=== PATIENT | male | born 1995 | race Caucasian/White ===

== ENCOUNTER 2019-10-22 10:20 | Emergency (ER) | payer OTHER, SELFPAY ==
[2019-10-22 10:36] VITALS: BP 124/91; PULSE 123; RESP 20; TEMP 36.5; O2SAT 100
--- NOTE | 2019-10-22 11:12 | ED.ANXIETY ---
HPI - Anxiety General Chief Complaint: Anxiety Stated Complaint: ANXIETY Time Seen by Provider: 10/22/19 11:05 Source: patient and RN notes reviewed Mode of arrival: ambulatory Limitations: no limitations History of Present Illness HPI narrative: Pt is a 24 y/o male who is a nonsmoker/nondrinker that presents to the with c/o panic attacks since 8PM last night. Pt states that he has a H/O bipolar disorder and sees his psychiatrist Dr. Kirstie Zaidi every 2 months for the last 2 years. Pt states that he was in [facility] a month and a half ago for the same complaint and he was given some instructions to deal with his panic attacks and was told to follow up with his psychiatrist. Pt takes hydroxyzine PRN, latuda, pristiq, and lamotrigine for his psychiatric issues. He states that he takes his medications as Rx but he has not gotten any relief from them. Pt has not called his psychiatrist for a follow up. Pt denies using any drugs. He states that he has been more stressed at work lately. 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 Pt denies a sore throat, fever, cough, suicidal ideation, or homicidal ideation. He notes that he was not able to sleep all night d/t his anxiety. Pt states he used to take klonopin but does not remember if it worked; discussed will provide refill-but to be used only at night and not during the workday MD complaint: anxiety Onset (ago): hour(s) (15) Severity: similar to previous episodes Quality: constant Place: home History of similar episodes: Yes Provoking factors: work/job stress Relieving factors: nothing Associated symptoms: denies other symptoms Related Data Home Medications Medication Instructions Recorded Confirmed desvenlafaxine succinate 100 mg 100 mg PO DAILY 08/07/19 10/22/19 tablet,extended release 24 hr lamotrigine 25 mg tablet 25 mg PO DAILY tablet 08/07/19 10/22/19 lurasidone 60 mg tablet 60 mg PO BID tablet 08/07/19 10/22/19 hydroxyzine HCl 50 mg PO PRN 10/22/19 10/22/19 Allergies Allergy/AdvReac Type Severity Reaction Status Date / Time No Known Allergies Allergy Verified 10/22/19 10:34 Review of Systems Review of Systems: Narrative: General/Constitutional: No weight loss,fever Eyes: N0: Redness,discharge Ears/Nose/Throat: No: Epistaxis,ear discharge, sore throat Respiratory: Denies: Hemoptysis, cough Gastrointestinal: No Vomiting, Bleeding-rectal Skin: No Lumps, eruption Neurologic: No Focal Weakness,Sz Hematologic: Denies: Petechiae/Purpura Psychiatric: No: Suicidal ideation, homicidal ideation. Reports: panic attacks and anxiety All Other Systems: Reviewed and Negative PMFSH Past Medical History Medical History Anxiety Bipolar 1 disorder Surgical History Surgical History History of ear surgery Social History Social History Smoking status: Never smoker Tobacco type: e-cigarettes Alcohol intake: never Gender identity (if verbalized by the patient): Male Comments At time of signature, agree with nursing past medical, surgical, social and family history. There is no relevant family history pertinent to the presenting complaint Exam Narrative: Exam Narrative: General Appearance: Well appearing, Well nourished EYE: PERRLA, Conjunctiva clear Ears: Auditory canal normal, TM normal Nose: No Rhinorrhea, No Mucousal erythema Mouth/Throat: MM moist, Uvula midline Neck: Supple, No adenopathy Respiratory: No respiratory distress, Breath sounds equal, Clear to auscultation Cardiovascular: RRR, No JVD Musculoskeletal: Non tender, Normal strength Skin: Warm, Dry Neurological: A&O x3, CN II-XII intact Psychiatric: Normal mood, Normal affect Course Consultations Consultation #1: Discussed steven
--- NOTE | 2019-10-22 11:27 | PC.NURSE ---
After exam and discussion with Dr Alonzo-- called his DR and they said would see him Oct 29
== END 2019-10-22 11:39 | disposition home or self-care (01) ==
PROVIDERS: Emergency Provider Emergency Medicine
DX: G47.00 Insomnia, unspecified (principal); F31.9 Bipolar disorder, unspecified
CPT/HCPCS: 99213; G0463

== ENCOUNTER 2019-11-12 11:45 | Emergency (ER) | payer OTHER, SELFPAY ==
[2019-11-12 11:55] VITALS: BP 137/79; PULSE 106; RESP 20; TEMP 37; O2SAT 99
--- NOTE | 2019-11-12 12:33 | ED.LOWEXIN ---
HPI - Extremity Injury (Lower) General Chief Complaint: Extremity Injury, Lower Stated Complaint: BILAT KNEE PAIN Time Seen by Provider: 11/12/19 12:11 Source: patient Mode of arrival: ambulatory Limitations: no limitations History of Present Illness HPI Narrative: 24-year-old male presents for evaluation of bilateral knee pain that is been present for 1.5 weeks. 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 Pain initially developed while he was walking up the stairs. He reports pain is worse while walking up stairs, extending legs, running. Right side is slightly worse than left. He used ice 1 time for 10 minutes. He has not taken any medications or use compression. He denies any prior knee injuries, conditions, surgeries. No swelling, bruising, numbness, tingling, redness, break to skin integrity. Related Data Home Medications Medication Instructions Recorded Confirmed desvenlafaxine succinate 100 mg 100 mg PO DAILY 08/07/19 11/12/19 tablet,extended release 24 hr lamotrigine 25 mg tablet 25 mg PO DAILY tablet 08/07/19 11/12/19 hydroxyzine HCl 50 mg PO PRN 10/22/19 11/12/19 Allergies Allergy/AdvReac Type Severity Reaction Status Date / Time No Known Allergies Allergy Verified 11/12/19 11:59 Review of Systems Review of Systems: Narrative: CONSTITUTIONAL: Denies fever, chills, weight loss, or sweats. EYES: Denies visual changes, redness, or discharge. CARDIOVASCULAR: Denies chest pain, palpitations, or edema. RESPIRATORY: Denies cough or dyspnea SKIN: Denies rash or itching. MUSCULOSKELETAL: Denies back pain, myalgia, swelling. Reporting anterior bilateral knee pain NEUROLOGIC: Denies headache, numbness, or weakness. PSYCHIATRIC: Denies anxiety or depression. All systems reviewed & are unremarkable except as noted in HPI and below PMFSH Past Medical History Medical History Anxiety Bipolar 1 disorder Surgical History Surgical History History of ear surgery Family History Family History Mother Depression Father Depression Other Family history of allergic disorder Family history of kidney stones Family history of mental disorder Family history of thyroid disease Social History Social History Smoking status: Never smoker Tobacco type: e-cigarettes Alcohol intake: never Gender identity (if verbalized by the patient): Male Comments At the time of my signature, I agree with nursing past medical, surgical, social and family history. There is no relevant family history pertinent to the presenting complaint. Exam Narrative: Exam Narrative: GENERAL: No distress, well appearing, well nourished, alert and calm HEAD: Normocephalic, atraumatic. EYES: Pupils equal, round. Extraocular movements intact. Conjunctivae without redness or drainage. RESPIRATORY: Airway patent. Chest clear to auscultation bilaterally. Breath sounds equal bilaterally. No retractions. CARDIOVASCULAR: Regular rate and rhythm. No murmurs, rubs, gallops, or clicks. Capillary refill <2 seconds. MUSCULOSKELETAL: Range of motion grossly normal in all four extremities. Strength grossly normal in all four extremities. No edema. No swelling, bruising, break to skin integrity, popping, clicking, or grinding boted to bilateral knees. FROM of bilateral knees with no pain on exam. No pain to palpation on exam. SKIN: Color normal. Warm and dry. No rashes. NEURO: Alert. Motor intact in all extremities. Muscle tone normal. PSYCHIATRIC: Responds appropriately to providers. Course Vital Signs Vital signs: Vital Signs Temperature 98.6 F 11/12/19 11:55 Pulse Rate 106 H 11/12/19 11:55 Respiratory Rate 11/12/19 11:55 Blood Pressure 137/79 11/12/19 11:55 Pulse Ox
== END 2019-11-12 12:41 | disposition home or self-care (01) ==
PROVIDERS: Emergency Provider Nurse Practitioner
DX: M25.562 Pain in left knee (principal); M25.561 Pain in right knee; F17.200 Nicotine dependence, unspecified, uncomplicated; F31.9 Bipolar disorder, unspecified
CPT/HCPCS: 99213; G0463

== ENCOUNTER → 2020-10-18 14:56 | Outpatient (CLI) | payer OTHER, MEDICAID, SELFPAY ==
--- NOTE | ~2020-10-18 | US_ITS ---
US breast LT limited INDICATION: Palpable left breast abnormality TECHNIQUE: Dedicated left breast ultrasound COMPARISON: No prior studies for comparison. FINDINGS: The left breast is composed of normal heterogeneous echotexture without focal solid or cyst ic mass. IMPRESSION: 1: Normal left breast ultrasound. BI-RADS CATEGORY 1 - NEGATIVE Reviewed, dictated and finalized at location A. CLOSER
== END ==
PROVIDERS: PCP Family Medicine; Visit Provider Family Medicine
DX: N63.20 Unspecified lump in the left breast, unspecified quadrant (principal)
CPT/HCPCS: 76642

== ENCOUNTER 2020-12-22 17:08 | Emergency (ER) | payer OTHER, MEDICAID, SELFPAY ==
[2020-12-22 17:23] VITALS: BP 127/72; PULSE 94; RESP 16; TEMP 37.1; O2SAT 99
--- NOTE | 2020-12-22 17:27 | ED.ANXIETY ---
HPI - Anxiety General Chief Complaint: Anxiety Stated Complaint: ANXIETY Time Seen by Provider: 12/22/20 17:27 Source: patient Mode of arrival: ambulatory Limitations: no limitations History of Present Illness HPI narrative: Kenny Hooks is a 25 yo male with a PMH of anxiety who comes to express care for a refill on vistaril to control his anxiety. Was out of meds and missed part of work today due to high anxiety. Related Data Home Medications Medication Instructions Recorded Confirmed desvenlafaxine succinate 100 mg 100 mg PO DAILY 08/07/19 12/22/20 tablet,extended release 24 hr hydroxyzine HCl 50 mg PO PRN 10/22/19 12/22/20 lamotrigine 25 mg tablet 100 mg PO BID tablet 08/01/20 12/22/20 lurasidone 120 mg tablet 120 mg PO DAILY 08/01/20 12/22/20 Allergies Allergy/AdvReac Type Severity Reaction Status Date / Time No Known Allergies Allergy Verified 12/22/20 17:18 Review of Systems Review of Systems: Narrative: CONSTITUTIONAL: Denies fever, chills, sweats. EYES: Denies visual changes, redness, discharge. ENT: Denies rhinorrhea, congestion, sore throat, otalgia. CARDIOVASCULAR: Denies chest pain, palpitations, edema. RESPIRATORY: Denies dyspnea, wheezing, cough GASTROINTESTINAL: Denies abdominal pain, nausea, vomiting, diarrhea. GENITOURINARY: Denies dysuria, hematuria, abnormal discharge SKIN: Denies rash or itching. NEUROLOGIC: Denies numbness, or focal weakness. PSYCHIATRIC: Very anxious; had anxiety attack and upset earlier today - out of hydroxyzine PMFSH Past Medical History Medical History Anxiety Bipolar 1 disorder Dyslipidemia Surgical History Surgical History History of tympanoplasty 2012 Family History Family History Mother Depression Father Depression Other HX: breast cancer Other Family history of allergic disorder Family history of kidney stones Family history of mental disorder Family history of thyroid disease Social History Social History Smoking status: Never smoker Tobacco type: e-cigarettes/vaping Alcohol intake: never Gender identity (if verbalized by the patient): Male Comments At time of signature, I agree with nursing past medical, surgical, social and family history. There is no relevant family history pertinent to the presenting complaint. Exam Narrative: Exam Narrative: GENERAL: This is a well-nourished, well-developed patient, in mild distress. HEAD: normocephalic, atraumatic. EYES: Sclera clear/white. Vision is grossly intact. EARS: External ears normal, Hearing grossly intact. NOSE: External nose normal without nasal discharge, nares without redness, no rhinorrhea. THROAT: Mucous membranes moist, NECK: Neck supple, CARDIOVASCULAR: Tachycardic rate and rhythm without murmurs, gallops, or rubs. RESPIRATORY: Clear to auscultation. Breath sounds equal bilaterally. No wheezes, rales, or rhonchi. GASTROINTESTINAL: Abdomen soft, non-tender, SKIN: warm, intact with no suspicious lesions or rash, good texture and turgor. NEURO: awake, alert, and oriented to person, place and time. There were no obvious focal neurologic abnormalities. Steady gait EXTREMITIES: Normal range of motion. BACK: Nontender without deformity Psych: anxious, states feeling a little better, denies thoughts of self harm or depression Course Course Emergency Course: pt here for refill on vistaril and work note given hydroxyzine and wirk note Vital Signs Vital signs: Vital Signs Temperature 98.7 F 12/22/20 17:23 Pulse Rate 94 12/22/20 17:23 Respiratory Rate 16 12/22/20 17:23 Blood Pressure 127/72 12/22/20 17:23 Pulse Oximetry 99 12/22/20 17:23 Temperature 98.7 F 12/22/20 17:23 Pulse Rate 94 12/22/20 17:23 Respiratory Rate 16
== END 2020-12-22 17:44 | disposition home or self-care (01) ==
PROVIDERS: Emergency Provider Nurse Practitioner
DX: F41.9 Anxiety disorder, unspecified (principal); F17.200 Nicotine dependence, unspecified, uncomplicated; F31.9 Bipolar disorder, unspecified; E78.5 Hyperlipidemia, unspecified
CPT/HCPCS: 99211; 99213; G0463

== ENCOUNTER 2021-01-08 14:47 | Emergency (ER) | payer OTHER, MEDICAID, SELFPAY ==
[2021-01-08 15:01] VITALS: BP 134/72; PULSE 101; RESP 16; TEMP 36.8
--- NOTE | 2021-01-08 15:29 | ED.ANXIETY ---
HPI - Anxiety General Chief Complaint: Anxiety Stated Complaint: needs work note Time Seen by Provider: 01/08/21 15:14 Source: patient and RN notes reviewed Mode of arrival: ambulatory Limitations: no limitations History of Present Illness HPI narrative: Patient presents today requesting a work note. He called into work for the last 5 days due to his anxiety. States his symptoms typically start out as chest pain in the morning and subside throughout the day. He is on anxiety medication, but states it is not helping. Knows that he needs to follow-up with his PCP. Denies SI or HI. He was seen at [facility] a few weeks ago for same complaint and was given a refill for his Vistaril. complaint: anxiety Related Data Home Medications Medication Instructions Recorded Confirmed desvenlafaxine succinate 100 mg 100 mg PO DAILY 08/07/19 12/22/20 tablet,extended release 24 hr hydroxyzine HCl 50 mg PO PRN 10/22/19 12/22/20 lamotrigine 25 mg tablet 100 mg PO BID tablet 08/01/20 12/22/20 lurasidone 120 mg tablet 120 mg PO DAILY 08/01/20 12/22/20 Allergies Allergy/AdvReac Type Severity Reaction Status Date / Time No Known Allergies Allergy Verified 12/22/20 17:18 Review of Systems Review of Systems: Narrative: CONSTITUTIONAL: Denies body aches, fever, chills, or sweats. EYES: Denies visual changes, redness, or discharge. ENT: Denies rhinorrhea, congestion, sore throat, or otalgia. CARDIOVASCULAR: Denies chest pain, palpitations, or edema. RESPIRATORY: Denies cough or dyspnea. GASTROINTESTINAL: Denies abdominal pain, nausea, vomiting, or diarrhea. GENITOURINARY: Denies dysuria or hematuria. SKIN: Denies rash, itching, or wounds. MUSCULOSKELETAL: Denies back pain, joint pain, or myalgia. NEUROLOGIC: Denies headache, numbness, tingling, or weakness. PSYCH: Anxiety PMFSH Past Medical History Medical History Anxiety Bipolar 1 disorder Dyslipidemia Surgical History Surgical History History of tympanoplasty 2013 Family History Family History Mother Depression Father Depression Other HX: breast cancer Other Family history of allergic disorder Family history of kidney stones Family history of mental disorder Family history of thyroid disease Social History Social History Smoking status: Never smoker Tobacco type: e-cigarettes/vaping Alcohol intake: never Substance use type: does not use Gender identity (if verbalized by the patient): Male Comments At time of signature, I have reviewed and agree with nursing past medical, surgical, social and family history unless otherwise noted. Please see nursing chart for further information. There is no relevant family history pertinent to the presenting complaint Exam Narrative: Exam Narrative: GENERAL: Well-appearing, well-nourished, and in no acute distress. HEAD: Normocephalic, atraumatic. EYES: EOMI. No redness or drainage. Conjunctivae normal. ENT: Mucous membranes pink and moist. NECK: Normal AROM. CHEST: No respiratory distress. Clear to auscultation. HEART: Regular rhythm. + Tachycardia. No murmur appreciated. Normal peripheral pulses. ABDOMEN: Soft, nontender, nondistended, normal active bowel sounds. MUSCULOSKELETAL: No bony tenderness. EXTREMITIES: Normal range of motion. No edema. SKIN: Warm, dry, no rash. Capillary refill normal. Normal skin turgor. NEURO: No focal deficits. Alert and oriented x3. Gait steady. PSYCH: Normal affect. No signs of depression or anxiety. Course Course Emergency Course: Discussed symptoms. Told patient he needs to follow-up with his PCP as express care would not continue to give him work notes for his ongoing anxiety symptoms. Also discussed FMLA options for
== END 2021-01-08 15:39 | disposition home or self-care (01) ==
PROVIDERS: Emergency Provider Nurse Practitioner
DX: F41.9 Anxiety disorder, unspecified (principal); F17.200 Nicotine dependence, unspecified, uncomplicated; F31.9 Bipolar disorder, unspecified; E78.5 Hyperlipidemia, unspecified
CPT/HCPCS: 99211; G0463

== ENCOUNTER 2022-03-10 11:34 | Emergency (ER) | payer BC, SELFPAY ==
[2022-03-10 11:40] VITALS: BP 130/84; PULSE 124; RESP 20; TEMP 36.7; O2SAT 100
[2022-03-10 11:43] VITALS: BP 130/84; PULSE 124; RESP 20; TEMP 36.7; O2SAT 100
--- NOTE | 2022-03-10 12:13 | ED.GENADULT ---
HPI - General Adult General Chief complaint: Ear Stated complaint: EAR PROBLEMS Source: patient Mode of arrival: ambulatory Limitations: no limitations History of Present Illness HPI narrative: Patient presents for evaluation of bilateral ear pain, left greater than the right. States his symptoms started when he was taking a flight home from [place] about 4 weeks ago. Reports a popping sensation in the ears, double hearing and yellow drainage from left ear. He attempted to clean the left ear with a Q-tip but saw some bloody drainage on the Q-tip so he stopped. He saw his primary care provider over a week ago for his symptoms and was told to use Flonase. Denies any other, chills, sinus congestion, sore throat. He is requesting a note to return to work. He has underlying anxiety and states this is provoked when he is evaluated by healthcare providers., His HR is elevated on initial exam. He states this typically occurs when he is receiving a medical evaluation. He denies any chest pain or SOB. Hx of tympanoplasty. Related Data Home Medications Medication Instructions Recorded Confirmed desvenlafaxine succinate 100 mg 100 mg PO DAILY 08/07/19 03/10/22 tablet,extended release 24 hr (Pristiq) lamotrigine 25 mg tablet 100 mg PO BID 08/01/20 03/10/22 lurasidone 120 mg tablet (Latuda) 120 mg PO DAILY 08/01/20 03/10/22 Allergies Allergy/AdvReac Type Severity Reaction Status Date / Time No Known Allergies Allergy Verified 03/10/22 11:43 Review of Systems Review of Systems: CONSTITUTIONAL: Denies fever, chills, or sweats. EYES: Denies visual changes, redness, or discharge. ENT: Reports bilateral ear pain, left greater than right. Reports drainage from left ear, popping and double hearing CARDIOVASCULAR: Denies chest pain, palpitations, or edema. RESPIRATORY: Denies cough or dyspnea. GASTROINTESTINAL: Denies abdominal pain, nausea, vomiting, or diarrhea. GENITOURINARY: Denies dysuria or hematuria. SKIN: Denies rash or itching. MUSCULOSKELETAL: Denies back pain, joint pain, or myalgia. NEUROLOGIC: Denies headache, numbness, dizziness, or weakness. PSYCHIATRIC: Reports anxiety. Denies depression. PENDING SALE TO [facility] Past Medical History Medical History Anxiety Bipolar 1 disorder Dyslipidemia Surgical History Surgical History History of tympanoplasty 2012 Family History Family History Mother Depression Father Depression Other HX: breast cancer Other Family history of allergic disorder Family history of kidney stones Family history of mental disorder Family history of thyroid disease Social History Social History Smoking status: Never smoker Tobacco type: e-cigarettes/vaping Alcohol intake: never Substance use type: does not use Living arrangements: alone Gender identity (if verbalized by the patient): Male Spiritual care concerns: No Exam Narrative: GENERAL: Well-appearing, well-nourished, and in no acute distress. HEAD: Normocephalic, atraumatic. EYES: PERRLA and EOMI. ENT: Nares clear, no rhinorrhea or epistaxis. Mucous membranes moist. Oropharynx without tonsillar hypertrophy exudate or other lesions. Middle ear fluid present on left. Left TM scarring noted NECK: Supple. No adenopathy or masses. No carotid bruits or JVD CHEST: Clear to auscultation. No respiratory distress. No wheezes rales or rhonchi HEART: Rate 112. Regular rhythm. No murmur heard. Normal peripheral pulses. ABDOMEN: Soft, nontender, nondistended, normal active bowel sounds. EXTREMITIES: Normal range of motion. No edema. SKIN: Warm, dry, no rash. NEURO: No focal deficits. Alert and oriented x3. PSYCH: Normal mood and affect. Course Course Emergency Course: T
== END 2022-03-10 12:02 | disposition home or self-care (01) ==
PROVIDERS: Emergency Provider Nurse Practitioner; PCP Family Medicine
DX: H93.92 Unspecified disorder of left ear (principal); F41.9 Anxiety disorder, unspecified; E78.5 Hyperlipidemia, unspecified; F31.9 Bipolar disorder, unspecified
CPT/HCPCS: 99211; G0463

== ENCOUNTER 2023-03-05 20:33 | Emergency (ER) | payer BC, SELFPAY ==
[2023-03-05 20:49] VITALS: BP 141/85; PULSE 104; RESP 18; TEMP 36.6; O2SAT 100
[2023-03-05 21:06] LABS: Basophils Absolute Auto 0.1 K/mm3 (0.0-0.1); Basophils Percent Auto 0.6 % (0.2-1.2); Eosinophils Absolute Auto 0.2 K/mm3 (0-0.3); Eosinophils Percent Auto 1.5 % (0-4.4); Hematocrit 43.3 % (42.0-52.0); Hemoglobin 14.9 g/dL (14.0-18.0); Immature Granulocyte Absolute 0.04 K/mm3 (0.00-0.031); Immature Granulocyte Percent A 0.4 % (0-0.5); Lymphocytes Absolute Auto 3.33 K/mm3 (0.9-3.2); Lymphocytes Percent Auto 30.3 % (18.3-44.2); Mean Corpuscular HGB Conc 34.4 g/dl (32-36); Mean Corpuscular Hemoglobin 30.2 pg (26-34); Mean Corpuscular Volume 87.7 fl (80-100); Mean Platelet Volume 10.3 fl (7.4-10.4); Monocytes Absolute Auto 0.8 K/mm3 (0.1-0.6); Monocytes Percent Auto 7.7 % (2.6-8.5); Neutrophils Absolute Auto 6.5 K/mm3 (1.3-6.7); Neutrophils Percent Auto 59.5 % (45.5-73.1); Platelet Count Result 344 k/mm3 (150-375); Red Blood Count 4.94 M/mm3 (4.6-6.20); Red Cell Distribution Width 12.4 % (11.5-14.5)
[2023-03-05 21:12] LABS: Appearance Urine Turbid (Clear); Bacteria Urine None Seen /hpf; Bilirubin Urine Negative (Negative); Blood Urine 3+ (Negative); Color Urine Yellow (Yellow); Glucose Urine UA Negative (Negative); Ketones Urine Negative (Negative); Leukocyte Esterase Ur Trace LEU/UL (Negative); Nitrate Urine Negative (Negative); Non Pathogenic Casts 0-2; Protein Urine 2+ mg/dL (Negative); RBC Urine >100 /hpf (0-2); Specific Grav Ur 1.021 (1.001-1.035); Squamous Epithelial Cell Urine None seen /hpf (Few); WBC Urine 0-5 /hpf
[2023-03-05 21:14] LABS: Add Urine Microscopic? YES
[2023-03-05 21:17] LABS: Alanine Aminotransferase 32 U/L (6-50); Albumin Level 4.5 g/dL (3.5-5.1); Alkaline Phosphatase 89 U/L (38-126); Anion Gap 9 mmol/L (8-16); Aspartate Amino Transferase 34 U/L (17-59); Bilirubin,Total 0.3 mg/dL (0.2-1.3); Blood Urea Nitrogen 15 mg/dL (9-20); Calcium 9.5 mg/dL (8.4-10.2); Carbon Dioxide 26 mmol/L (22-30); Chloride 104 mmol/L (98-107); Estimated Glomerular Filt Rate > 60; Glucose 96 mg/dL (65-110); Sodium 139 mmol/L (137-145)
== END 2023-03-06 01:00 | disposition left against medical advice (07) ==
PROVIDERS: Emergency Provider Emergency Medicine; PCP Family Medicine
DX: N23 Unspecified renal colic (principal)
CPT/HCPCS: 36415; 80053; 81001; 85025; 99199

== ENCOUNTER 2024-07-13 20:40 | Emergency (ER) | payer BC, SELFPAY ==
[2024-07-13 20:41] VITALS: BP 133/74; PULSE 114; RESP 18; TEMP 36.5; O2SAT 100
--- NOTE | 2024-07-13 22:41 | ED.ANIMALBIT ---
HPI - Animal Bite General Chief Complaint: Animal Bite Stated Complaint: spider bite Time Seen by Provider: 07/13/24 21:57 Source: patient Mode of arrival: ambulatory Limitations: no limitations History of Present Illness HPI narrative: Patient is a 28-year-old male who presents the ED with concern for a spider bite. Patient reports he noticed an area of bruising and central redness to his right forearm 2 days ago. He states he saw a brown recluse spider in his room that day and is concerned he may have been bitten by the spider. He did not actually see anything bite him. He states he presented today to determine if he does have a spider bite or not. Denies fevers, significant pain. Related Data Home Medications Medication Instructions Recorded Confirmed desvenlafaxine succinate 100 mg 100 mg PO DAILY 08/07/19 03/10/22 tablet,extended release 24 hr (Pristiq) lamotrigine 25 mg tablet 100 mg PO BID 08/01/20 03/10/22 lurasidone 120 mg tablet (Latuda) 120 mg PO DAILY 08/01/20 03/10/22 Allergies Allergy/AdvReac Type Severity Reaction Status Date / Time No Known Allergies Allergy Verified 07/13/24 20:45 Review of Systems Review of Systems: All systems reviewed & are unremarkable except as noted in HPI. All systems reviewed & are unremarkable except as noted in HPI and below PMFSH Past Medical History Medical History Anxiety Bipolar 1 disorder Dyslipidemia Surgical History Surgical History History of tympanoplasty 2013 Family History Family History Mother Depression Father Depression Other HX: breast cancer Other Family history of allergic disorder Family history of kidney stones Family history of mental disorder Family history of thyroid disease Social History Social History Smoking status: Never smoker Tobacco type: e-cigarettes/vaping Alcohol intake: never Substance use type: does not use Living arrangements: alone Gender identity (if verbalized by the patient): Male Spiritual care concerns: No Exam Narrative: GENERAL: Well appearing, obese with BMI of 38.0, non-toxic, in no acute distress. HEAD: Normocephalic, atraumatic. RESPIRATORY: Airway patent, respirations nonlabored. CARDIOVASCULAR: Regular rate and rhythm without murmurs, rubs, or gallops. Radial pulses intact and easily palpable. MUSCULOSKELETAL: Moves all extremities. No gross deformities. SKIN: Warm, dry, normal color. Small area of ecchymosis to distal ventral forearm. Small faint erythematous area of center of ecchymosis with small area of induration. Minimal tenderness. No fluctuance. No bite hassan. No necrosis, blistering, sloughing of skin. NEURO: A&O X3. Speech clear. PSYCHIATRIC: Appropriate mood and affect. Normal interaction. Course Vital Signs Vital signs: Vital Signs Temperature 97.7 F 07/13/24 20:41 Pulse Rate 114 H 07/13/24 20:41 Respiratory Rate 18 07/13/24 20:41 Blood Pressure 133/74 07/13/24 20:41 Pulse Oximetry 100 07/13/24 20:41 Oxygen Delivery Room Air 07/13/24 20:41 Temperature 97.7 F 07/13/24 20:41 Pulse Rate 114 H 07/13/24 20:41 Respiratory Rate 18 07/13/24 20:41 Blood Pressure 133/74 07/13/24 20:41 Pulse Oximetry 100 07/13/24 20:41 Oxygen Delivery Room Air 07/13/24 20:41 MDM - Animal Bite MDM Narrative Medical decision making narrative: Discussed possibility of spider bite though advised there is no way to definitively know if he did indeed get bit by a spider. Exam looks like a bruise. No significant signs of infection at this time. Will prescribe doxycycline should area of erythema continue to progress. Discussed signs and symptoms of cellulitic infection and indicati
== END 2024-07-13 22:50 | disposition home or self-care (01) ==
PROVIDERS: Emergency Provider Physician Assistant; PCP Family Medicine
DX: R58 Hemorrhage, not elsewhere classified (principal); F17.290 Nicotine dependence, other tobacco product, uncomplicated; F41.9 Anxiety disorder, unspecified; F31.9 Bipolar disorder, unspecified; E78.5 Hyperlipidemia, unspecified
CPT/HCPCS: 99283